=== PATIENT | female | born 1980 | race Two or more races ===

== ENCOUNTER 2020-01-24 13:45 | Inpatient (IN) | payer BC ==
--- NOTE | 2020-01-24 14:05 | HP ---
Past Medical History - Primary Care Physician PCP:: Gavi Cagle - Admission Chief Complaint: Painful UC, pelvic pressure History of Present Illness: 39 yo EDC 02/03/2020 by sono on 2nd trimester c/o pelvic pressure, UC; BP elevated x 3 last visit LGA, GDM on diet well controlled, Morbid obesity, Aging placenta pt admitted for Induction of labor EFW -[id number] on 01/12/2020 History Source: Patient Limitations to Obtaining History: No Limitations - Past Medical History ...: 3 ...Para: 2 ...EDC by Sondominique: 02/03/20 - Past Surgical History Past Surgical History: Yes: None (Morbid obesity) Hx Myomectomy: No Hx Transabdominal Cerclage: No - Smoking History Smoking history: Never smoked Have you smoked in the past 12 months: No - Alcohol/Substance Use Hx Alcohol Use: No History of Substance Use: reports: None - Social History Usual Living Arrangement: Yes: With Spouse History of Recent Travel: No Home Medications - Allergies Allergies/Adverse Reactions: Allergies Allergy/AdvReac Type Severity Reaction Status Date / Time No Known Allergies Allergy Verified 01/24/20 17:01 - Home Medications Home Medications: Ambulatory Orders No115/Iron/Folic Acid [ 19 Chewable Tablet] 1 each PO DAILY 12/27/19 Family Medical History Family Hx Cancer: Grandmother (maternal) Review of Systems - Review of Systems Constitutional: reports: No Symptoms Eyes: reports: No Symptoms HENT: reports: No Symptoms Neck: reports: No Symptoms Cardiovascular: reports: No Symptoms Respiratory: reports: No Symptoms Gastrointestinal: reports: No Symptoms Genitourinary: reports: No Symptoms Breasts: reports: No Symptoms Reported Musculoskeletal: reports: No Symptoms Integumentary: reports: No Symptoms Neurological: reports: No Symptoms Endocrine: reports: No Symptoms Hematology/Lymphatic: reports: No Symptoms Psychiatric: reports: No Symptoms Physical Exam - Maternity Constitutional: Yes: Well Nourished, No Distress Eyes: Yes: WNL HENT: Yes: WNL Neck: Yes: WNL Cardiovascular: Yes: WNL Breast(s): Yes: WNL - Abdominal Exam/OB Number of Fetuses: Single Presentation: Vertex Contractions: Yes Regularity: Irregular Intensity: Mild Monitor Mode: External Heart Rate (range): 140 Heart Rate Location: [facility] Category: I Accelerations: Uniform Decelerations: None - Vaginal Exam/OB Vaginal Bleeding: No Dilatation (cm): 1-2 Effacement (%): 70 Amniotic Membrane Status: Intact Presentation: Vertex/Position Station: -2 - Physical Exam Musculoskeletal: Yes: WNL Extremities: Yes: WNL Edema: No Integumentary: Yes: WNL Deep Tendon Reflex Grade: Normal +2 ...Motor Strength: WNL Hemorrhage Risk Assessment - Risk Factors Medium Risk Factors: Yes: Multiple gestation, Obesity (BMI >40) Risk Score: 2 Risk Level: High Risk Problem List - Problems (1) AMA (advanced maternal age) multigravida 35+ Code(s): O09.529 - SUPERVISION OF ELDERLY MULTIGRAVIDA, UNSPECIFIED TRIMESTER (2) Diet controlled gestational diabetes mellitus (GDM), antepartum Code(s): O24.410 - GESTATIONAL DIABETES MELLITUS IN , DIET CONTROLLED (3) 38 weeks gestation of Code(s): Z3A.38 - 38 WEEKS GESTATION OF (4) Morbid obesity Code(s): E66.01 - MORBID (SEVERE) OBESITY DUE TO EXCESS CALORIES (5) Placental abnormality Code(s): O43.109 - MALFORMATION OF PLACENTA, UNSPECIFIED, UNSPECIFIED TRIMESTER Assessment/Plan Admit to Induction of labor Suspected LGA - shoulder dystocia discussed
[2020-01-24] MEDS ORDERED: ELECTROLYTE-148 SOLN 1,000 ML IV SCH (14:15)
[2020-01-24 15:30] LABS: BASO % 0.3 % (0-2.0); EOS % 0.3 % (0-4.5); LYMPH % 12.8 % (8-40); MCH 25.9 pg (25.7-33.7); MCHC 32.5 g/dl (32.0-36.0); MEAN CELL VOLUME 79.7 fl (80-96); MEAN PLT VOLUME 10.2 fl (7.5-11.1); MONO % 10.7 % (3.8-10.2); NEUT % 75.9 % (42.8-82.8); PLATELET COUNT 253 K/MM3 (134-434); RBC 4.64 M/mm3 (3.60-5.2); RDW 15.9 % (11.6-15.6); WHITE BLOOD COUNT 9.3 K/mm3 (4.0-10.0)
[2020-01-24 15:37] LABS: INR 0.98 (0.83-1.09); PROTHROMBIN TIME (PATIENT) 11.6 SEC (9.7-13.0)
[2020-01-24 15:40] LABS: ACTIVATED PTT 28.9 SECONDS (25.2-36.5)
[2020-01-24 16:03] LABS: BLOOD UREA NITROGEN 6.6 mg/dL (7-18); CALCIUM 8.8 mg/dL (8.5-10.1); CREATININE 0.5 mg/dL (0.55-1.3)
[2020-01-24 16:48] VITALS: BMI 48.4
[2020-01-24] MEDS ORDERED: DINOPROSTONE 10 MG VAGINAL SUPPOSITORY VG ONE (17:09)
[2020-01-24] MEDS ORDERED: OXYTOCIN 30 UNITS in 0.9% NS 30 UNIT/500 ML INFUS.BAG IVPB SCH (19:45)
--- NOTE | 2020-01-24 19:48 | PN ---
Progress Note (short form) - Note Progress Note: Pt c/o painful UC q 5 min VSS, afebrile VE - 3-4 cm, 70%, -2 vtx, IM cervidil removed EFM baseline 140 bpm, reactive, cat 1, no decel TOCO UC irreg q 5 -7 min A/P pitocin augmentation
[2020-01-24] MEDS ORDERED: OXYTOCIN 30 UNITS in 0.9% NS 30 UNIT/500 ML INFUS.BAG IVPB ONE (19:57)
[2020-01-24] MEDS ORDERED: OXYTOCIN 20 UNITS in 0.9% NS 20 UNIT/1,000 ML INFUS.BAG IV ONE (19:57)
[2020-01-24] MEDS ORDERED: LIDOCAINE HCL 1% PRESERVATIVE FREE - 30ML VIAL ONE (19:57)
[2020-01-24] MEDS ORDERED: FENTANYL/BUPIVACAINE/NS/PF - PCEA - 50 ML DISP.SYRIN EP ONE (20:25)
[2020-01-24] MEDS ORDERED: PCA PUMP NR ONE (20:25)
[2020-01-24] MEDS ORDERED: BUPIVACAINE HCL/PF 0.25% (2.5MG/ML) 10 ML VIAL ONE (20:31)
--- NOTE | 2020-01-24 21:27 | PN ---
Progress Note (short form) - Note Progress Note: Pt c/o painful UC q 3 min VSS, afebrile VE - 4 cm, 80%, -2 vtx, IM EFM baseline 140 bpm, reactive, cat 1, no decel TOCO UC irreg q 5 -7 min A/P S/P Epidural anesthesia pitocin augmentation close observation Problem List - Problems (1) AMA (advanced maternal age) multigravida 35+ Code(s): O09.529 - SUPERVISION OF ELDERLY MULTIGRAVIDA, UNSPECIFIED TRIMESTER (2) Diet controlled gestational diabetes mellitus (GDM), antepartum Code(s): O24.410 - GESTATIONAL DIABETES MELLITUS IN , DIET CONTROLLED (3) 38 weeks gestation of Code(s): Z3A.38 - 38 WEEKS GESTATION OF (4) Morbid obesity Code(s): E66.01 - MORBID (SEVERE) OBESITY DUE TO EXCESS CALORIES (5) Placental abnormality Code(s): O43.109 - MALFORMATION OF PLACENTA, UNSPECIFIED, UNSPECIFIED TRIMESTER
[2020-01-24] MEDS ORDERED: NALOXONE HCL 0.4 MG/ML VIAL IVPUSH PRN (22:10)
[2020-01-24] MEDS ORDERED: FENTANYL/BUPIVACAINE/NS/PF - PCEA - 50 ML DISP.SYRIN EP SCH (22:15)
--- NOTE | 2020-01-24 23:36 | PN ---
Progress Note (short form) - Note Progress Note: Pt comfortable VSS, afebrile VE - 5 cm, 80%, -2 vtx, IM EFM baseline 140 bpm, reactive, cat 1, no decel TOCO UC irreg q 3-4 min A/P S/P Epidural anesthesia pitocin augmentation close observation Problem List - Problems (1) AMA (advanced maternal age) multigravida 35+ Code(s): O09.529 - SUPERVISION OF ELDERLY MULTIGRAVIDA, UNSPECIFIED TRIMESTER (2) Diet controlled gestational diabetes mellitus (GDM), antepartum Code(s): O24.410 - GESTATIONAL DIABETES MELLITUS IN , DIET CONTROLLED (3) 38 weeks gestation of Code(s): Z3A.38 - 38 WEEKS GESTATION OF (4) Morbid obesity Code(s): E66.01 - MORBID (SEVERE) OBESITY DUE TO EXCESS CALORIES (5) Placental abnormality Code(s): O43.109 - MALFORMATION OF PLACENTA, UNSPECIFIED, UNSPECIFIED TRIMESTER
--- NOTE | 2020-01-24 23:57 | PN ---
Progress Note (short form) - Note Progress Note: Pt comfortable , LOC VSS, afebrile VE - 5 cm, 90%, -2 vtx, AROM - clear fluid, IFM EFM baseline 130 bpm, reactive, cat 1, no decel TOCO UC irreg q 3-4 min A/P S/P Epidural anesthesia pitocin augmentation close observation Problem List - Problems (1) AMA (advanced maternal age) multigravida 35+ Code(s): O09.529 - SUPERVISION OF ELDERLY MULTIGRAVIDA, UNSPECIFIED TRIMESTER (2) Diet controlled gestational diabetes mellitus (GDM), antepartum Code(s): O24.410 - GESTATIONAL DIABETES MELLITUS IN , DIET CONTROLLED (3) 38 weeks gestation of Code(s): Z3A.38 - 38 WEEKS GESTATION OF (4) Morbid obesity Code(s): E66.01 - MORBID (SEVERE) OBESITY DUE TO EXCESS CALORIES (5) Placental abnormality Code(s): O43.109 - MALFORMATION OF PLACENTA, UNSPECIFIED, UNSPECIFIED TRIMESTER
[2020-01-25] MEDS ORDERED: IBUPROFEN 600 MG TABLET (FP) PO PRN (01:31)
[2020-01-25] MEDS ORDERED: BENZOCAINE 28 GM HEMORRHOIDAL OINTMENT TP PRN (01:31)
[2020-01-25] MEDS ORDERED: BENZOCAINE 20% 57 GM BOTTLE TP PRN (01:31)
[2020-01-25] MEDS ORDERED: WITCH HAZEL 50% (TUCKS) 40 PAD/JAR PAD TP PRN (01:31)
[2020-01-25] MEDS ORDERED: BISACODYL 10 MG SUPP.RECT RC PRN (01:31)
[2020-01-25] MEDS ORDERED: ACETAMINOPHEN 325 MG TABLET (FP) PO PRN (01:31)
[2020-01-25] MEDS ORDERED: METHYLERGONOVINE MALEATE 0.2 MG/1 ML AMP IM PRN (01:31)
--- NOTE | 2020-01-25 01:34 | PN ---
Delivery - Delivery Vaginal Delivery: No Problems, Spontaneous Type of Anesthesia: Epidural Episiotomy/Laceration: None EBL (cc): 400 Delivery, Single - Stages of Labor Placenta: Yes: Spontaneous - Condition of Livestock Agent/Cooper Helper Present: No Infant Gender: Female Position: OA - [place] Feeding Plan Initial Plan: Elected not to breastfeed exclusively throughout hospitalization Remarks - Remarks Remarks: babygirl born 9/9 Cord gases and blood collected placenta and membranes complete
[2020-01-25] MEDS ORDERED: OXYTOCIN 20 UNITS in 0.9% NS 20 UNIT/1,000 ML INFUS.BAG IV SCH (01:45)
[2020-01-25] MEDS: ENOXAPARIN NA (PORCINE) 40 MG/0.4 ML DISP.SYRIN SQ SCH (10:21)
[2020-01-26 08:31] LABS: BASO % 0.2 % (0-2.0); EOS % 0.6 % (0-4.5); HEMATOCRIT 35.9 % (32.4-45.2); HEMOGLOBIN 11.4 GM/dL (10.7-15.3); LYMPH % 14.3 % (8-40); MCH 25.2 pg (25.7-33.7); MCHC 31.8 g/dl (32.0-36.0); MEAN CELL VOLUME 79.3 fl (80-96); MEAN PLT VOLUME 9.7 fl (7.5-11.1); MONO % 7.4 % (3.8-10.2); NEUT % 77.5 % (42.8-82.8); PLATELET COUNT 279 K/MM3 (134-434); RBC 4.52 M/mm3 (3.60-5.2); RDW 15.4 % (11.6-15.6); WHITE BLOOD COUNT 10.8 K/mm3 (4.0-10.0)
--- NOTE | 2020-01-26 09:49 | DS ---
Physical Exam-CLAIM AUDITOR Vital Signs: Vital Signs Temperature 98.2 F 01/25/20 21:00 Pulse Rate 86 01/25/20 21:00 Respiratory Rate 20 01/25/20 21:00 Blood Pressure 110/75 01/25/20 21:00 O2 Sat by Pulse Oximetry (%) 97 01/25/20 14:00 Constitutional: Yes: Well Nourished, No Distress, Calm Eyes: Yes: WNL, Conjunctiva Clear, EOM Intact HENT: Yes: WNL, Atraumatic, Normocephalic Neck: Yes: WNL, Supple, Trachea Midline Cardiovascular: Yes: WNL, Regular Rate and Rhythm Respiratory: Yes: WNL, Regular, CTA Bilaterally Gastrointestinal: Yes: WNL ...Rectal Exam: Yes: WNL Renal/: Yes: WNL Breast(s): Yes: WNL Musculoskeletal: Yes: WNL Extremities: Yes: WNL Integumentary: Yes: WNL Neurological: Yes: WNL, Alert, Oriented ...Motor Strength: WNL Psychiatric: Yes: WNL, Alert, Oriented Labs: CBC, BMP 01/26/20 07:51 01/24/20 15:00 Delivery - Delivery Vaginal Delivery: No Problems, Spontaneous Type of Anesthesia: Epidural Episiotomy/Laceration: 1st degree EBL (cc): 400 Delivery, Single - Stages of Labor Date 1st Stage Initiatied: 01/24/20 Time 1st Stage Initiated: 19:30 Date 2nd Stage Initiated: 01/25/20 Time 2nd Stage Initiated: 01:05 Date of Delivery: 01/25/20 Time of Delivery: 01:12 Time Placenta Delivered: 01:15 Placenta: Yes: Spontaneous - Condition of Manager Entry/Fork Truck Operator Present: No Infant Gender: Female Weight: 3.799 kg Position: OA Total Hours ROM (Hrs/Mins): 1HR/ 27 min - 1 Minute Total Score: 9 5 Minutes Total Score: 9 - Feeding Plan Initial Plan: Elected not to breastfeed exclusively throughout hospitalization Discharge Summary Problems reviewed: Yes Reason For Visit: INDUCTION OF LABOR Current Active Problems 38 weeks gestation of (Acute) AMA (advanced maternal age) multigravida 35+ (Acute) Diet controlled gestational diabetes mellitus (GDM), antepartum (Acute) Morbid obesity (Acute) Placental abnormality (Acute) Hospital Course: non complicated Condition: Good - Instructions - Home Medications Comprehensive Discharge Medication List: Ambulatory Orders No115/Iron/Folic Acid [ 19 Chewable Tablet] 1 each PO DAILY 12/27/19
[2020-01-26] MEDS: ENOXAPARIN NA (PORCINE) 40 MG/0.4 ML DISP.SYRIN SQ SCH (09:53)
[2020-01-26 11:11] VITALS: BP 117/78; PULSE 90; TEMP 97.9
== END 2020-01-26 13:45 | disposition home or self-care (01) | DRG 807 ==
LOC: JLDR 13:45 → J3W 01-25 04:46
PROVIDERS: ADMIT Obstetrics & Gynecology; ATTEND Obstetrics & Gynecology
PROC: 3E0P7VZ Introduction of Hormone into Female Reproductive, Via Natural or Artificial Opening (ICD-10-PCS; 2020-01-24)
PROC: 10907ZC Drainage of Amniotic Fluid, Therapeutic from Products of Conception, Via Natural or Artificial Opening (ICD-10-PCS; 2020-01-24)
PROC: 10E0XZZ Delivery of Products of Conception, External Approach (ICD-10-PCS; principal; 2020-01-25)
DX: O24.420 Gestational diabetes mellitus in childbirth, diet controlled (principal); Z37.0 Single live birth; O43.103 Malformation of placenta, unspecified, third trimester; O36.63X0 Maternal care for excessive fetal growth, third trimester, not applicable or unspecified; O99.214 Obesity complicating childbirth; E66.01 Morbid (severe) obesity due to excess calories; Z3A.38 38 weeks gestation of pregnancy
CPT/HCPCS: 36415; 59409; 80048; 85025; 85610; 85730; 86780; 86850; 86900; 86901; 87389; U0003